=== PATIENT | male | born 1985 | race African-American/Black ===

== ENCOUNTER 2017-05-13 17:07 | Emergency (ER) | payer OTHER ==
[~2017-05-13 17:07] MED LIST: FLEXERIL10 MG PO; NAPROSYN500 MG PO; NO MEDICATIONS; PYRIDIUM PO; VOLTAREN75 MG PO
[2017-05-13 17:28] LABS: URINE SOURCE CLEAN CATCH
[2017-05-13 17:30] LABS: URINE APPEARANCE CLEAR; URINE BILIRUBIN NEG (NEG); URINE COLOR YELLOW; URINE GLUCOSE NEG (NORM); URINE KETONE NEG (NEG); URINE LEUKOCYTE ESTERASE NEG (NEG); URINE NITRATE NEG (NEG); URINE PROTEIN NEG (NEG); URINE SPECIFIC GRAVITY 1.025 (1.003-1.035)
[2017-05-13 17:43] LABS: MICRO INDICATED? NO; URINE BLOOD NEG (NEG)
[2017-05-16 01:15] LABS: CHLAMYDIA TRACH Not Detected (Not Detected); N GONOR Not Detected (Not Detected)
== END 2017-05-13 18:38 | disposition home or self-care (01) ==
LOC: SED 17:07
PROVIDERS: Nurse Practitioner
DX: N34.1 Nonspecific urethritis (principal); F17.210 Nicotine dependence, cigarettes, uncomplicated
CPT/HCPCS: 81003; 87491; 87591; 96372; 99283; J0696